=== PATIENT | female | born 1950 | race Caucasian/White ===

== ENCOUNTER → 2022-01-03 | Outpatient (CLI) | payer MEDICARE, OTHER ==
--- NOTE | 2022-01-03 14:49 | BD ---
EXAMINATION TYPE: Axial Bone Density DATE OF EXAM: 01/03/2022 COMPARISON: 12/25/2006 CLINICAL HISTORY: 71 years year old Female. ICD-10 CODE: Z780 POST MENOPAUSAL WITHOUT HRT Height: 57.5 IN Weight: 129 LBS RISK FACTORS HISTORY OF: Active: YES Diet low in dairy products/other sources of calcium: YES Postmenopausal woman: AGE 52 MEDICATIONS: Additional Medications: CALCIUM, VIT D, EXAM MEASUREMENTS: Bone mineral densitometry was performed using the TRAFFIQ System. Bone mineral density as measured about the Lumbar spine is: ----- L1-L4(G/cm2): 0.922 T Score Values are as follows: ----- L1: -1.8 ----- L2: -2.6 ----- L3: -2.1 ----- L4: -2.3 ----- L1-L4: -2.1 Bone mineral density has: Increased 7.2% since study of: 12/25/2006 Bone mineral density about the R hip (g/cm2): 0.712 Bone mineral density about the L hip (g/cm2): 0.759 T Score values are as follows: -----R Neck: -2.3 -----L Neck: -2.0 -----R Total: -2.2 -----L Total: -0.9 Bone mineral density has: Increased 2.2% since study of: 12/25/2006 FRAX%s: The graph provided illustrates a 13.7 chance for a major osteoporotic fx and a 3.1 chance for the hips probability for fx in 10 years time. IMPRESSION: Osteoporosis (T Score less than -2.5). There is increased fracture risk and therapy is usually indicated based on age. Re-Screen 1-2 years. NOTE: T-SCORE=SD OF THE YOUNG ADULT MEAN.
--- NOTE | 2022-01-04 11:51 | MM ---
Reason for Exam: Screening (asymptomatic). Last mammogram was performed 5 year(s) and 6 month(s) ago. Patient History: Menarche at age 14. First Full-Term at age 23. Postmenopausal. 01/28/2008, Benign Core Biopsy on the left side. Risk Values: Alison 5 year model risk: 1.8%. NCI Lifetime model risk: 5.6%. Prior Study Comparison: 01/07/2008 Left Diagnostic Mammogram, [facility]. 07/22/2015 Bilateral Screening Mammogram, [facility]. 07/31/2016 Bilateral Screening Mammogram, [facility]. Tissue Density: The breast tissue is heterogeneously dense. This may lower the sensitivity of mammography. Findings: Analyzed By CAD. Microclip left breast from prior biopsy. 8 mm oval nodularity posterior right breast LIQ not well seen previously. Additional underlying nodularity central right MLO view. Further US evaluation is recommended. Otherwise, no significant change. Overall Assessment: Incomplete: need additional imaging evaluation, BI-RAD 0 Management: Diagnostic Breast Ultrasound of the right breast. Scan entire breast. Particular attention to the lower inner quadrant. Possible underlying cysts. Electronically signed and approved by: Marilyn Sepulveda M.D. Radiologist
== END | disposition home or self-care (01) ==
LOC: RADMAMWWP 12:47
PROVIDERS: ATTEND Family Medicine
DX: Z12.31 Encounter for screening mammogram for malignant neoplasm of breast (principal); Z78.0 Asymptomatic menopausal state; M81.0 Age-related osteoporosis without current pathological fracture
CPT/HCPCS: 77063; 77067; 77080

== ENCOUNTER → 2022-01-11 | Outpatient (CLI) | payer MEDICARE, OTHER ==
--- NOTE | 2022-01-18 12:11 | MM ---
Reason for Exam: Additional evaluation requested from abnormal screening. Patient History: Menarche at age 14. First Full-Term at age 23. Postmenopausal. 01/28/2008, Benign Core Biopsy on the left side. Risk Values: Alison 5 year model risk: 1.8%. NCI Lifetime model risk: 5.6%. Prior Study Comparison: 01/07/2008 Left Diagnostic Mammogram, [facility]. 07/22/2015 Bilateral Screening Mammogram, [facility]. 07/31/2016 Bilateral Screening Mammogram, [facility]. 01/03/2022 Bilateral Screening Mammogram, [facility]. Tissue Density: The breast tissue is heterogeneously dense. This may lower the sensitivity of mammography. Findings: The previous several cystic clusters present down the right breast at the 4:00 position 5 cm the nipple measuring 8 x 3 x 4 mm. There is a tiny echogenic area present within and a simple cluster of cysts may be less likely. Biopsy is recommended at this lesion.A second area is at 6:00 position 4 cm the nipple measuring 6 x 4 x 14 and is probably benign. Overall Assessment: Suspicious, BI-RAD 4 Management: Ultrasound Core Biopsy of the right breast. A clinical breast exam by your physician is recommended on an annual basis and results should be correlated with mammographic findings. Called Dr. Urias's office with mammographic findings and has scheduled an appointment for the patient for 02/14/22 at 4:[address] Luis. Biopsy scheduled for 01/24/22 at 10:00. PRELIMINARY REPORT CALLED AND FAXED TO DR. LUIS ON 01/11/22. QUEENIE
== END | disposition home or self-care (01) ==
LOC: RADUSWWP 13:32
PROVIDERS: ATTEND Family Medicine
DX: N60.01 Solitary cyst of right breast (principal); Z78.0 Asymptomatic menopausal state

== ENCOUNTER → 2022-01-24 | Day surgery (SDC) | payer MEDICARE, OTHER ==
--- NOTE | 2022-01-29 14:01 | MM ---
Reason for Exam: Post Procedure Mammogram. Last screening mammogram was performed less than 1 month ago. Patient History: Menarche at age 14. First Full-Term at age 23. Postmenopausal. 01/28/2008, Benign Core Biopsy on the left side. Risk Values: Alison 5 year model risk: 1.8%. NCI Lifetime model risk: 5.6%. Prior Study Comparison: 07/22/2015 Bilateral Screening Mammogram, [facility]. 07/31/2016 Bilateral Screening Mammogram, [facility]. 01/03/2022 Bilateral MG 3D screening mammo w/cad, [facility]. Tissue Density: Right: The breast tissue is heterogeneously dense. This may lower the sensitivity of mammography. Pathology Description: Location: 4 o'clock. Marker Left Behind. Needle Type: Celero Cores: 2 Gauge: 12 Pathology Results: Result: Benign, Fibrocystic change. RIGHT BREAST, 4:00 POSITION, CORE BIOPSY: Benign breast tissue within current specimen having fragmented cyst, fibrocystic change and columnar cell change. Overall Assessment: Benign Assessment: MG diagnostic mammo RT wo CAD - Right: Benign, BI-RAD 2. Management: Diagnostic Mammogram of the right breast in 6 months. Electronically signed and approved by: [place] M.D. Radiologis
== END ==
LOC: RADUSWWP 09:29
PROVIDERS: ATTEND Surgery
DX: N60.11 Diffuse cystic mastopathy of right breast (principal); R92.8 Other abnormal and inconclusive findings on diagnostic imaging of breast
CPT/HCPCS: 88305; 77065; 19083; A4648

== ENCOUNTER → 2022-07-11 | Outpatient (CLI) | payer MEDICARE, OTHER ==
--- NOTE | 2022-07-11 11:32 | MM ---
Reason for Exam: Follow-up at short interval from prior study. Last screening mammogram was performed 6 month(s) ago. Patient History: Menarche at age 14. First Full-Term at age 23. Postmenopausal. 01/24/2022, Benign US biopsy breast VAD RT on the right side. 01/28/2008, Benign Core Biopsy on the left side. Risk Values: Alison 5 year model risk: 2.3%. NCI Lifetime model risk: 7.1%. Prior Study Comparison: 02/20/2000 Bilateral Screening Mammogram, [facility]. 03/25/2001 Bilateral Screening Mammogram, [facility]. 08/18/2004 Bilateral Screening Mammogram, [facility]. 12/07/2005 Bilateral Screening Mammogram, [facility]. 12/25/2006 Bilateral Screening Mammogram, [facility]. 12/26/2007 Bilateral Screening Mammogram, [facility]. 01/07/2008 Left Diagnostic Mammogram, [facility] 07/22/2015 Bilateral Screening Mammogram, [facility]. 07/31/2016 Bilateral Screening Mammogram, [facility]. 01/03/2022 Bilateral MG 3D screening mammo w/cad, [facility]. 01/24/2022 Right MG diagnostic mammo RT wo CAD, [facility]. Tissue Density: Right: The breast tissue is heterogeneously dense. This may lower the sensitivity of mammography. Findings: Analyzed By CAD. Postprocedural changes with right breast biopsy clip without suspicious mass constipation or distortion.Postprocedural changes with right breast biopsy clip without suspicious mass, calcification or distortion. Overall Assessment: Benign, BI-RAD 2 Management: Screening Mammogram of both breasts in 1 year. A clinical breast exam by your physician is recommended on an annual basis and results should be correlated with mammographic findings. This exam should not preclude additional follow-up of suspicious palpable abnormalities. Results were given to the patient verbally at the time of exam. Electronically signed and approved by: Parmjit Montoya DO
== END | disposition home or self-care (01) ==
LOC: RADMAMWWP 11:04
PROVIDERS: ATTEND Surgery
DX: R92.8 Other abnormal and inconclusive findings on diagnostic imaging of breast (principal); Z78.0 Asymptomatic menopausal state
CPT/HCPCS: 77065; G0279; 77061

== ENCOUNTER → 2024-01-07 | Outpatient (CLI) | payer MEDICARE, OTHER ==
--- NOTE | 2024-01-07 13:46 | MM ---
Reason for Exam: Screening (asymptomatic). Last mammogram was performed 2 year(s) and 0 month(s) ago. Patient History: Menarche at age 14. First Full-Term at age 23. Postmenopausal. 01/24/2022, Benign US biopsy breast VAD RT on the right side. 01/28/2008, Benign Core Biopsy on the left side. Risk Values: Alison 5 year model risk: 2.3%. NCI Lifetime model risk: 6.4%. Prior Study Comparison: 01/03/2022 Bilateral MG 3D screening mammo w/cad, [facility]. 01/24/2022 Right MG diagnostic mammo RT wo CAD, [facility]. 07/11/2022 Right MG 3D diag mammo w/cad RT, [facility]. Tissue Density: There are scattered areas of fibroglandular density. Findings: Analyzed By CAD. Left breast biopsy clip. Right breast: There is no suspicious group of microcalcifications or new suspicious mass. Left breast: There is no suspicious group of microcalcifications or new suspicious mass. Overall Assessment: Benign, BI-RAD 2 Management: Screening Mammogram of both breasts in [address] [facility] will attempt to contact patient to return for supplemental views and ultrasound if indicated. Patient should continue monthly self-breast exams. A clinical breast exam by your physician is recommended on an annual basis. This exam should not preclude additional follow-up of suspicious palpable abnormalities. Note on Alison scores and lifetime risk: 1. A Alison score greater than 3% is considered moderate risk. If this is the case, consider specialist referral to assess eligibility for a risk reducing agent. 2. If overall lifetime risk for the development of breast cancer is 20% or higher, the patient may qualify for future screening with alternating mammogram and breast MRI. Electronically signed and approved by: Parmjit Montoya DO
--- NOTE | 2024-01-07 20:33 | BD ---
EXAMINATION TYPE: Axial Bone Density DATE OF EXAM: 01/07/2024 CLINICAL HISTORY: 73 years old Female. ICD-10 CODE: M81.0 AGE RELATED OSTEOPOROSIS Height: 59 Weight: 122.8 FRAX RISK QUESTIONS: Alcohol (3 or more units per day): no Family History (Parent hip fracture): no Glucocorticoids (More than 3mos): no (Ex: prednisone, prednisolone, methylprednisolone, dexamethasone, and hydrocortisone). History of Fracture in Adulthood: no Secondary Osteoporosis: 1. Type 1 Diabetes: no 2. Hyperthyroidism: no 3. Menopause before 45: no 4. Malnutrition: no 5. Chronic liver disease: no Rheumatoid Arthritis: no Current Tobacco Use: no RISK FACTORS HISTORY OF: Surgery to Spine/Hip(right/left)/Wrist (right/left): no MEDICATIONS: Osteoporosis Medications: fosamax How Lon months EXAM MEASUREMENTS: Bone mineral densitometry was performed using the [employer]ive System. Bone mineral density as measured about the Lumbar spine is: ----- L1-L4(G/cm2): 0.853 T Score Values are as follows: ----- L1: -2.6 ----- L2: -2.5 ----- L3: -3.1 ----- L4: -2.8 ----- L1-L4: -2.7 Z Score Values are as follows: ----- L1: -0.6 ----- L2: -0.5 ----- L3: -1.1 ----- L4: -0.8 ----- L1-L4: -0.7 Bone mineral density has: decreased -7.5 % since study of: 01.03.2022 Bone mineral density about the R hip (g/cm2): 0.739 Bone mineral density about the L hip (g/cm2): 0.909 T Score values are as follows: -----R Neck: -2.4 -----L Neck: -1.7 -----R Total: -2.1 -----L Total: -0.8 Z Score values are as follows: -----R Neck: -0.4 -----L Neck: 0.3 -----R Total: -0.4 -----L Total: 1.0 Bone mineral density has: increased 1.9 % since study of: 6.1.2021 FRAX%s: The graph provided illustrates a 14.6 % chance for a major osteoporotic fx and a 3.7% chance for the hips probability for fx in 10 years time. IMPRESSION: Osteoporosis (T Score less than -2.5). There is increased fracture risk and therapy is usually indicated based on age. Re-Screen 1-2 years. NOTE: T-SCORE=SD OF THE YOUNG ADULT MEAN.
== END | disposition home or self-care (01) ==
LOC: RADMAMWWP 10:34
PROVIDERS: ATTEND Family Medicine
DX: Z12.31 Encounter for screening mammogram for malignant neoplasm of breast (principal); Z00.00 Encounter for general adult medical examination without abnormal findings; M81.0 Age-related osteoporosis without current pathological fracture; M85.89 Other specified disorders of bone density and structure, multiple sites; Z78.0 Asymptomatic menopausal state
CPT/HCPCS: 77063; 77067; 77080

== ENCOUNTER → 2024-05-21 | Outpatient (CLI) | payer MEDICARE, OTHER ==
--- NOTE | 2024-05-21 15:16 | MR ---
EXAMINATION TYPE: MR brain wo con DATE OF EXAM: 05/21/2024 3:05 PM CLINICAL INDICATION: Female, 73 years old with history of I67.9; PHH, CVA COMPARISON: None. TECHNIQUE: Multi planar, multi sequence imaging was performed through the brain including: T1, T2, In version recovery, Diffusion weighted imaging, and gradient echo imaging. No gadolinium was given. FINDINGS: Mild cerebral atrophy with proportional dilation of ventricular system. Scattered foci of high T2 s ignal intensity are seen within the periventricular white matter. Midline structures show no abnormal ity. Diffusion-weighted imaging shows no evidence of restricted diffusion. Blooming artifact and susc eptibility weighted images in the medial aspect of the posterior left frontal lobe suspicious for marquez or microhemorrhage versus vascular malformation.. The bone marrow signal is within normal limits. Paranasal sinuses and mastoid air cells: No significant paranasal sinus disease. Visualized orbits: Orbital contents are intact. IMPRESSION: 1. No evidence of intracranial mass or acute/subacute infarct. 2. Nonspecific white matter changes, likely secondary to small vessel ischemic disease. 3. 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 [facility], , 05/21/2024 3:14 PM
== END | disposition home or self-care (01) ==
LOC: RADMRIMAIN 14:26
PROVIDERS: ATTEND Psychiatry & Neurology Neurology
CPT/HCPCS: 70551

== ENCOUNTER → 2024-06-02 | Outpatient (CLI) | payer MEDICARE, OTHER ==
--- NOTE | 2024-07-03 20:47 | EM ---
EVENT MONITOR The patient was monitored between the 02 of June and June. The rhythm strip revealed a sinus mechanism, average rate 78 beats per minute, minimum 50, maximum 135 beats per minute. No atrial fibrillation was noted. Ventricular ectopic activity burden was less than 1% with single PVCs. No pauses were noted. No symptoms were reported. MMCHERYL / JOHANNAN: [id number] /
== END | disposition home or self-care (01) ==
LOC: RADECHMAIN 07:30
PROVIDERS: ATTEND Psychiatry & Neurology Neurology
DX: I48.0 Paroxysmal atrial fibrillation (principal); I49.3 Ventricular premature depolarization
CPT/HCPCS: 93270